=== PATIENT | female | born 1990 | race Caucasian/White ===

== ENCOUNTER 2017-11-20 05:37 | Emergency (ER) | payer BC ==
[~2017-11-20] VITALS: Ht 167.6 cm; Wt 99.8 kg
[2017-11-20 06:52] LABS: Urine WBC None Seen /hpf (0 - 5)
[2017-11-20 07:10] LABS: Urine Bacteria NONE SEEN /hpf (None Seen); Urine Blood Negative /uL (Negative); Urine Specific Gravity 1.003 (1.001-1.035)
[2017-11-20] MEDS ORDERED: ACETAMINOPHEN 325 MG TAB PO ONE (07:30)
[2017-11-20] MEDS ORDERED: ACETAMINOPHEN 500 MG TAB PO ONE ×2 (07:32→07:45)
[2017-11-20 08:34] VITALS: BP 127/85
== END 2017-11-20 09:11 | disposition home or self-care (01) ==
LOC: ER 05:40
DX: S00.03XA Contusion of scalp, initial encounter (principal); S20.01XA Contusion of right breast, initial encounter; S39.91XA Unspecified injury of abdomen, initial encounter; S09.90XA Unspecified injury of head, initial encounter; R42 Dizziness and giddiness; E07.9 Disorder of thyroid, unspecified; Y08.89XA Assault by other specified means, initial encounter; Y93.89 Activity, other specified; Y99.8 Other external cause status; Y92.89 Other specified places as the place of occurrence of the external cause
CPT/HCPCS: 70450; 81001; 81025